=== PATIENT | female | born 1990 | race Caucasian/White ===

== ENCOUNTER → 2018-05-08 09:34 | Outpatient (CLI) | payer SELFPAY ==
[2018-05-08 11:35] LABS: Absolute Lymphocyte Count 1.64 X10^3/ul (0.83-4.51); Absolute Neutrophil Count 4.3 X10^3/uL (2.0-7.7); Basophil# 0.03 X10^3/uL; Basophil% 0.5 % (0-1); Eosinophil# 0.08 X10^3/uL; Eosinophils% 1.2 % (0-5); Hematocrit 40.9 % (37-47); Hemoglobin 13.2 g/dl (12.0-15.0); Lymphocyte # 1.64 X10^3/ul (4.0); Lymphocyte % 25.6 % (19-41); Mean Corp Hgb Conc 32.3 g/gl (32-36); Mean Corpuscular Hgb 26.2 pg (27.0-32.0); Mean Corpuscular Volume 81.2 fL (81-99); Mean Platelet Vol. 10.6 fl (6.2-12.0); Monocyte# 0.41 X10^3/uL; Monocyte% 6.4 % (0-10); Neutrophil # 4.25 X10^3/uL (2.7-7.7); Neutrophil % 66.3 % (47-70); POSITIVE COUNT NO; POSITIVE DIFFERENTIAL NO; POSITIVE MORPHOLOGY NO; Platelet Count 282 K/mm3 (150-450); RBC Distribution Width CV 16.9 % (11.6-14.6); RBC Distribution Width SD 49.4 fl (35.1-43.9); Red Blood Count 5.04 M/mm3 (4.2-5.4); White Blood Count 6.4 K/mm3 (4.4-11.0)
[2018-05-08 11:48] LABS: hCG Titer Quant., Serum < 1 mIU/mL (<9 non-preg)
[2018-05-08 11:54] LABS: Thyroid Stim Hormone (TSH) 1.06 uIU/mL (0.358-3.74)
== END ==
PROVIDERS: PCP Family Medicine; Visit Provider Obstetrics & Gynecology
DX: N93.9 Abnormal uterine and vaginal bleeding, unspecified (principal); F53 Mental and behavioral disorders associated with the puerperium, not elsewhere classified
CPT/HCPCS: 36415; 84443; 84702; 85025

== ENCOUNTER → 2019-08-24 13:39 | Outpatient (CLI) | payer SELFPAY ==
[2019-08-24 08:11] VITALS: BMI 23.5
[2019-08-31 09:43] LABS: HPV APTIMA, High Risk Negative (Negative)
== END ==
PROVIDERS: Family Provider Family Medicine; PCP Family Medicine; Referring Provider Nurse Practitioner Women's Health; Visit Provider Nurse Practitioner Women's Health
DX: N39.0 Urinary tract infection, site not specified (principal); N93.9 Abnormal uterine and vaginal bleeding, unspecified; R10.2 Pelvic and perineal pain; Z12.4 Encounter for screening for malignant neoplasm of cervix
CPT/HCPCS: 87086; 87088; 87624; 88175; G0145

== ENCOUNTER → 2019-08-24 15:16 | Outpatient (CLI) | payer SELFPAY ==
[2019-08-24 08:11] VITALS: BMI 23.5
--- NOTE | 2019-08-24 15:18 | US_ITS ---
STUDY: ULTRASOUND OF THE FEMALE PELVIS - COMPLETE REASON FOR EXAM: Female, 29 years old. ABNORMAL UTERINE BLEEDING LEFT PELVIC PAIN LMP: 08/09/2019 TECHNIQUE: Transabdominal and Transvaginal TECHNICAL QUALITY: Adequate. COMPARISON: None. FINDINGS: The uterus is anteverted and is in a midline position. Uterus appears to be septated. The uterus measures 9.2 x 5.1 x 4.2 cm. There is thickening of the endometrial complex of the cervix with adjacent hypoechogenicity of the subendometrial myometrium. No discrete mass is identified. The endometrium measures 10 mm in thickness, and is hyperechoic. There is no demonstrated endometrial mass. There is no demonstrated myometrial mass. I.U.D. - The patient does not have an I.U.D. The right ovary is visualized. The right ovary measures 4.8 x 2.2 x 2.6 cm. There is no right ovarian cyst or ovarian mass. There is no visualized right adnexal mass or complex lesion. There is normal arterial and normal venous vascularity. The left ovary is visualized. The left ovary measures 3.8 x 3.0 x 2.0 cm. There is no left ovarian cyst or ovarian mass. There is no visualized left adnexal mass or complex lesion. There is normal arterial and normal venous vascularity. There is mild pelvic free fluid. US/Pelvic (Non ) IMPRESSION: 1. Endometrial thickening and subendometrial heterogeneity involving the cervix. Could represent adenomyosis although nonspecific, neoplasm not excluded. Recommend correlation with pelvic/clinical exam and MRI, if clinically appropriate. 2. Mild pelvic free fluid. Electronically Signed: Porter Moctezuma MD (Brooks) at 17:17 EST , Service support ,
--- NOTE | 2019-08-24 15:18 | US_ITS ---
STUDY: ULTRASOUND OF THE FEMALE PELVIS - COMPLETE REASON FOR EXAM: Female, 29 years old. ABNORMAL UTERINE BLEEDING LEFT PELVIC PAIN LMP: 08/09/2019 TECHNIQUE: Transabdominal and Transvaginal TECHNICAL QUALITY: Adequate. COMPARISON: None. FINDINGS: The uterus is anteverted and is in a midline position. Uterus appears to be septated. The uterus measures 9.2 x 5.1 x 4.2 cm. There is thickening of the endometrial complex of the cervix with adjacent hypoechogenicity of the subendometrial myometrium. No discrete mass is identified. The endometrium measures 10 mm in thickness, and is hyperechoic. There is no demonstrated endometrial mass. There is no demonstrated myometrial mass. I.U.D. - The patient does not have an I.U.D. The right ovary is visualized. The right ovary measures 4.8 x 2.2 x 2.6 cm. There is no right ovarian cyst or ovarian mass. There is no visualized right adnexal mass or complex lesion. There is normal arterial and normal venous vascularity. The left ovary is visualized. The left ovary measures 3.8 x 3.0 x 2.0 cm. There is no left ovarian cyst or ovarian mass. There is no visualized left adnexal mass or complex lesion. There is normal arterial and normal venous vascularity. There is mild pelvic free fluid. US/Transvaginal Non- IMPRESSION: 1. Endometrial thickening and subendometrial heterogeneity involving the cervix. Could represent adenomyosis although nonspecific, neoplasm not excluded. Recommend correlation with pelvic/clinical exam and MRI, if clinically appropriate. 2. Mild pelvic free fluid. Electronically Signed: Porter Moctezuma MD (Brooks) at 17:17 EST , Service support ,
== END ==
PROVIDERS: Family Provider Family Medicine; PCP Family Medicine; Referring Provider Nurse Practitioner Women's Health; Visit Provider Nurse Practitioner Women's Health
DX: N93.9 Abnormal uterine and vaginal bleeding, unspecified (principal); R10.2 Pelvic and perineal pain
CPT/HCPCS: 76830; 76856; 93976

== ENCOUNTER → 2019-08-27 17:41 | Outpatient (CLI) | payer SELFPAY ==
[2019-08-24 08:11] VITALS: BMI 23.5
--- NOTE | 2019-08-27 17:50 | MRI_ITS ---
STUDY: MR PELVIS WITH T WITHOUT CONTRAST REASON FOR EXAM: Female, 29 years old. Abnormal uterine bleeding, pelvic pain, back pain. F/U to abnormal sono TECHNIQUE: Standardized fat and water weighted pulse sequences were obtained in all 3 orthogonal planes, pre-and post contrast administration. Pt received 13ml Dotarem via IV was administered for the contrast portion of the examination. COMPARISON: None. FINDINGS: Urinary bladder is not well-distended. The visualized hollow viscus structures are unremarkable. The uterus is anteverted measuring 4.4 x 6.2 x 8.8 cm. There is fluid in the upper/fundal uterine canal although no distinct mass is identified. There is diffuse thickening and indistinctness of the junctional zone with small focal areas of increased T2 signal intensity of the uterine fundal and body myometrium. Subendometrial localized hyper T2 signal intensity of the lower uterine segment evident on image 14 of series 3 measuring 2-3 mm. No distinct, focal mass. No abnormal contrast enhancement. There are follicles of the bilateral ovaries without dominant follicle or cyst. There is no pelvic fluid. There is no pelvic mass lesion or lymphadenopathy. Normal visualized pelvic arteries. No demonstrated bone marrow edema. Normal abdominal wall. MRI/Pelvis W/WO Contrast IMPRESSION: 1. Diffusely heterogeneous uterine myometrium with thickened junctional zone and small focal hyper T2 signal intensity suggestive of adenomyosis, diffuse type. 2. No uterine mass or pelvic adenopathy. Electronically Signed: Porter Moctezuma MD (Brooks) at 8:27 EST , Service support ,
== END ==
PROVIDERS: Family Provider Family Medicine; PCP Family Medicine; Referring Provider Nurse Practitioner Women's Health; Visit Provider Nurse Practitioner Women's Health
DX: N93.9 Abnormal uterine and vaginal bleeding, unspecified (principal); N88.8 Other specified noninflammatory disorders of cervix uteri; Q51.20 Other doubling of uterus, unspecified; R93.89 Abnormal findings on diagnostic imaging of other specified body structures
CPT/HCPCS: 72197; A9575

== ENCOUNTER → 2020-06-12 18:22 | Outpatient (CLI) | payer SELFPAY ==
[2019-08-24 08:11] VITALS: BMI 23.5
--- NOTE | 2020-06-12 18:24 | US_ITS ---
STUDY: SECOND AND THIRD TRIMESTER OBSTETRICAL ULTRASOUND - LIMITED REASON FOR EXAM: Female, 30 years old VIABILITY..... BLOODY DISCHARGE YESTERDAY LMP: 03/12/2020 PRIOR ULTRASOUND: None. TECHNIQUE: Transabdominal and Transvaginal TECHNICAL QUALITY: Adequate. FINDINGS: There is a single intrauterine fetus. The fetus is in a breech presentation. There is demonstrated cardiac activity with a heart rate of 166 bpm. There is a normal amniotic fluid volume. The largest amniotic fluid pocket measures 3.5 cm x 3.7 cm. The amniotic fluid index (BERNARD) is within normal limits. The placenta is posterior and low lying but not previa in location. The tip of the placenta is estimated 8 mm away from the cervical os. There are Grade 0 placental changes. The cervix measures 3.1 cm in length. BIOMETRY: BPD: 2.53 cm: 14 weeks, 2 days HC: 9.76 cm: 14 weeks, 3 days AC: 7.37 cm: 13 weeks, 6 days FL: 1.01 cm: 13 weeks, 0 days Age by LMP: 13 weeks, 1 days. KHALIDA by LMP: 12/17/2020. age by current US: 13 weeks, 6 days. KHALIDA by current US: 12/12/2020. Estimated weight: 70 grams, +/- 12 grams, 15 percentile. US/Init OB < 14Wks US IMPRESSION: Single live intrauterine gestation with a mean gestational age of 13 weeks and 6 days. Low-lying posterior placenta. The tip of the placenta is 8 mm away from the cervical os. Electronically Signed: Dhruv Mohr, at 9:38 EDT , Service support ,
== END ==
PROVIDERS: PCP Family Medicine; Visit Provider Nurse Practitioner Women's Health
DX: O20.0 Threatened abortion (principal)
CPT/HCPCS: 76801

== ENCOUNTER → 2020-08-08 15:50 | Outpatient (CLI) | payer SELFPAY ==
--- NOTE | 2020-08-08 15:53 | US_ITS ---
STUDY: SECOND AND THIRD TRIMESTER OBSTETRICAL ULTRASOUND REASON FOR EXAM: Female, 30 years old evaluation of anatomy LMP: 03/12/2020 TECHNIQUE: Transabdominal real time exam with medina scale image documentation. TECHNICAL QUALITY: Adequate. PRIOR ULTRASOUND: 06/12/2020 FINDINGS: There is a single intrauterine fetus. The fetus is in variable presentation. There is demonstrated cardiac activity with a heart rate of 149 bpm. There is a normal amniotic fluid volume. The largest amniotic fluid pocket measures 5.8 cm.The placenta is fundal, posterior and not low lying. There are Grade 0 placental changes. The cervix measures 3.7 cm in length. The bilateral adnexal regions are normal. BIOMETRY: BPD: 5.62 cm: 23 weeks, 1 days HC: 19.9 cm: 22 weeks, 1 days AC: 17.8 cm: 22 weeks, 4 days FL: 3.7 cm: 21 weeks, 5 days CI: 82 FL/BPD: 66 FL/AC: 21 HC/AC: 1.12 age by current US: 22 weeks, 0 days. KHALIDA by current US: 12/12/2020. Estimated weight: 504 grams, +/- 76 grams, 93 %. age by prior US: 22 weeks, 0 days. KHALIDA by prior US: 12/12/2020. Age by LMP: 21 weeks, 2 days. KHALIDA by LMP: 12/17/2020. ANATOMY: Gender: Male Cranium: Normal lateral ventricles. Normal choroid plexus. Normal cerebellum. Normal cisterna magna. Normal face, nose and lips. Chest: Normal 4-chamber heart. Abdomen/Pelvis: Normal diaphragm. Normal stomach. Normal abdominal wall. Normal cord insertion. Normal 3 vessel cord. Normal kidneys. Normal bladder. Spine: Normal cervical spine. Normal thoracic spine. Normal lumbar spine. Normal sacrum. Extremities: Normal bilateral upper extremities. Normal bilateral lower extremities. US/OB Anatomy Scan IMPRESSION: Single living intrauterine fetus of 22 weeks and 0 days with an KHALIDA of 12/12/2020. Normal amniotic fluid volume. Grade 0, fundal, posterior and not low lying placenta. Cervical length of 3.7 cm. Estimated weight of 405 g +/- 76 g, 93rd percentile. Normal anatomic survey. Electronically Signed: Mei Holt MD at 19:00 EST , Service support ,
== END ==
PROVIDERS: PCP Family Medicine; Referring Provider Obstetrics & Gynecology; Visit Provider Obstetrics & Gynecology
DX: Z34.90 Encounter for supervision of normal pregnancy, unspecified, unspecified trimester (principal)
CPT/HCPCS: 76805

== ENCOUNTER → 2020-11-24 16:51 | Outpatient (CLI) | payer SELFPAY | PROVIDERS: PCP Family Medicine; Referring Provider Obstetrics & Gynecology; Visit Provider Obstetrics & Gynecology | DX: Z34.90 Encounter for supervision of normal pregnancy, unspecified, unspecified trimester (principal) | CPT/HCPCS: 87081 ==

== ENCOUNTER → 2022-04-16 | Outpatient (CLI) | payer SELFPAY ==
[2022-04-16 11:10] LABS: T4 Free Direct 0.97 ng/dL (0.76-1.46); Thyroid Stim Hormone (TSH) 2.12 uIU/mL (0.358-3.74)
[2022-04-19 15:47] LABS: HPV APTIMA, High Risk Negative (Negative)
== END | disposition home or self-care (01) ==
PROVIDERS: PCP Family Medicine; Referring Provider Obstetrics & Gynecology; Visit Provider Obstetrics & Gynecology
DX: Z12.4 Encounter for screening for malignant neoplasm of cervix (principal); N93.9 Abnormal uterine and vaginal bleeding, unspecified
CPT/HCPCS: 36415; 84439; 84443; 87624; 88175; G0145

== ENCOUNTER → 2022-08-13 | Outpatient (CLI) | payer SELFPAY ==
--- NOTE | 2022-08-13 10:02 | MRI_ITS ---
EXAM: MR PELVIS WITHOUT AND WITH INTRAVENOUS CONTRAST CLINICAL INDICATION: Abnormal uterine bleeding TECHNIQUE: Multiplanar and multisequence MR images of the pelvis without and with intravenous contrast. This report was created using [employer] report generation technology. CONTRAST: IV 12ml Clariscan COMPARISON: MR Pelvis dated 08/27/2019 FINDINGS: INTRAPERITONEAL SPACE: No adnexal mass or free pelvic fluid. BLADDER: Normal. REPRODUCTIVE: Stable uterine enlargement measuring 9.7 cm in length. Endometrial thickness of 8 mm. Junctional zone measures 7 mm. No hypertrophic endometrial glandular reaction is identified and myometrium is fairly homogeneous in signal intensity. Previously noted small glandular cyst along the endocervical canal are no longer apparent on the current exam. The multicystic appearance of both ovaries again seen. BONES/JOINTS: Normal. No suspicious lytic or blastic abnormality. SOFT TISSUES: Normal. No pelvic wall hernia. LYMPH NODES: Normal. No enlarged lymph nodes. MRI/Pelvis W/WO Contrast IMPRESSION: Stable mild uterine enlargement. No evidence of uterine mass or adenomyosis. Multicystic ovaries. Electronically Signed: Junaid Lozano MD at 15:15 EST ,
[2022-08-13 10:48] LABS: Absolute Neutrophil Count 3.3 X10^3/uL (2.0-7.7); Basophil# 0.05 X10^3/uL; Basophil% 0.9 % (0-1); Eosinophil# 0.07 X10^3/uL; Eosinophils% 1.3 % (0-5); Hematocrit 41.1 % (37-47); Hemoglobin 12.8 g/dL (12.0-15.0); Lymphocyte % 30.9 % (19-41); Mean Corp Hgb Conc 31.1 g/dL (32-36); Mean Corpuscular Hgb 26.3 pg (27.0-32.0); Mean Corpuscular Volume 84.4 fL (81-99); Mean Platelet Vol. 10.3 fl (6.2-12.0); Monocyte# 0.36 X10^3/uL; Monocyte% 6.5 % (0-10); NRBC Flagged by Analyzer 0 % (0-5); Neutrophil # 3.28 X10^3/uL (2.7-7.7); Neutrophil % 59.7 % (47-70); Platelet Count 393 K/mm3 (150-450); RBC Distribution Width CV 14.2 % (11.6-14.6); RBC Distribution Width SD 43.3 fl (35.1-43.9); Red Blood Count 4.87 M/mm3 (4.2-5.4); White Blood Count 5.5 K/mm3 (4.4-11.0)
== END | disposition home or self-care (01) ==
PROVIDERS: Referring Provider Obstetrics & Gynecology; Visit Provider Obstetrics & Gynecology
DX: N93.9 Abnormal uterine and vaginal bleeding, unspecified (principal); N85.2 Hypertrophy of uterus
CPT/HCPCS: 36415; 72197; 85025; 87070; 87205; A9575

== ENCOUNTER → 2024-05-07 | Outpatient (CLI) | payer SELFPAY ==
--- NOTE | 2024-05-07 09:24 | BI_ITS ---
MAMMOGRAPHY - BILATERAL DIAGNOSTIC REASON FOR EXAM: Female, 34 years old. Recent sonogram demonstrating a right breast calcification. PERTINENT HISTORY: Mother with breast cancer. Grandmother with breast cancer. TECHNIQUE: Digital bilateral breast mirta (3D mammographic acquisition) in the CC and MLO projections. 2-D mediolateral oblique (MLO) and craniocaudad (CC) views of both breasts were obtained. CAD: Full Field Digital Mammography with Computer Added Detection was performed. COMPARISON: None. Baseline examination. FINDINGS: Breast Composition: The breasts are extremely dense, which lowers the sensitivity of mammography. There are no dominant masses or suspicious calcifications. There is a 2 mm densely calcified nodule in the inferior medial anterior aspect of the right breast corresponding to the sonographic findings. This is in keeping with a calcified fibroadenoma. No other significant abnormalities are identified. BI/DIAG MAMM W/CAD, BILAT IMPRESSION: Negative diagnostic mammogram. Yearly followup mammogram recommended. (A) ASSESSMENT CATEGORY: BIRADS Category 2: Benign. A letter regarding these results will be sent to the patient by the facility within 30 days. Approximately 10% of breast cancers are not detected by mammography. A normal mammogram should not delay biopsy of a clinically suspicious abnormality. Electronically Signed: Dhruv Mohr MD at 10:45 EDT ,
== END | disposition home or self-care (01) ==
PROVIDERS: Referring Provider Family Medicine; Visit Provider Family Medicine
DX: R92.1 Mammographic calcification found on diagnostic imaging of breast (principal)
CPT/HCPCS: 77062; 77066; G0279

== ENCOUNTER → 2025-03-22 | Outpatient (CLI) | payer SELFPAY ==
--- NOTE | 2025-03-22 | CER_PTH ---
PATIENT: CHEO BUTTS LOC: [facility]#:[id number] AGE/SX: 35/F ROOM: RE03/22/[address]: Dr. Domenica Goncalves MD : 1990 BED: DIS: 03/22/2025 SPEC #: [id number] RECD: 03/22/25 16:25 STATUS: LEYDI RERuiz #: [id number] GUIDO: 03/22/25 00:[address]: Domenica Goncalves DEPT: SURGICAL PATHOLOGY RECD BY: Kimani Ford ENTERED: 03/23/25 09:21 SP TYPE: CERV OTHR DR: Dr. José Chin, DO Tissues: A - Uterine cervix, NOS Procedures: Surgery Specimen Level IV HEADER OPERATION: Cervical polyp removal PRE-OP DIAGNOSIS: Cervical polyp TISSUE SUBMITTED: A- Cervical polyp MICROSCOPIC DIAGNOSIS A. Cervix, polyp, excision: - Benign endocervical polyp.: MICROSCOPIC DESCRIPTION Slides are reviewed. GROSS DESCRIPTION A. Received in formalin labeled with the patient's name and date of . Designated as cerv polyp is a 2.0 x 1.0 x 0.5 cm giron-pink granular, polypoid portion of tissue with a narrow, apparent resection margin that is inked black. The specimen is trisected and entirely submitted in 1 cassette. [place] 03/23/2025 CPT:96483
--- NOTE | 2025-03-22 16:08 | US_ITS ---
PROCEDURE: PELVIC W/ TRANSVAGINAL REASON FOR EXAM: MENSES WITH CLOTS TECHNIQUE: PELVIC W/ TRANSVAGINAL COMPARISON: None FINDINGS: LMP: March 04, 2025. Measurements: Uterus: 10.5 cm x 6.4 cm x 4.5 cm with a volume of 157.51 mL Endometrial Thickness: 7.9 mm Right Ovary: 3.3 cm x 1.7 cm x 2.6 cm with a volume of 7.71 mL. Left Ovary: 3.4 cm x 3.1 cm x 2.9 cm with a volume of 50 18.51 mL. TRANSABDOMINAL: Uterus: Normal size, myometrial echotexture, and contour. Endometrium: Endometrium measures 7.9 mm. There is a 1.4 cm x 1 cm x 0.8 cm hypoechoic polypoid abnormality in the cervical canal. This may represent a polyp but flow insert this hypoechoic density. Right ovary: Normal size and echotexture. Left ovary: Normal size and echotexture. Other: No large pelvic mass identified. Transvaginal sonography was performed to better visualize the endometrium. TRANSVAGINAL: Uterus: Anteverted. Endometrium: Findings suggestive of a polyp cervical canal. Right ovary: Normal size and echotexture. Left ovary: Normal size and echotexture. Other adnexal findings: None. Cul-de-sac: Minimal free fluid in the pelvis within normal limits. Tenderness: No tenderness US/Pelvic w/ Transvaginal IMPRESSION: Findings suggestive of a 1.4 cm x 1 cm x 0.8 cm polyp in the cervical canal wit h blood flow. Reading Location: [id number]
== END | disposition home or self-care (01) ==
LOC: US 16:07
PROVIDERS: PCP Family Medicine; Referring Provider Obstetrics & Gynecology; Visit Provider Obstetrics & Gynecology
DX: N84.1 Polyp of cervix uteri (principal)
CPT/HCPCS: 76830; 76856; 88305

== ENCOUNTER → 2025-04-14 | Outpatient (CLI) | payer SELFPAY ==
--- NOTE | 2025-04-14 18:03 | US_ITS ---
PROCEDURE: PELVIC W/ TRANSVAGINAL REASON FOR EXAM: CERVICAL POLYP TECHNIQUE: PELVIC W/ TRANSVAGINAL COMPARISON: Prior study dated March 22, 2025. FINDINGS: LMP: April 01, 2025 Measurements: Uterus: 9.7 cm x 6.8 cm x 4.7 cm with a volume of 158.91 mL Endometrial Thickness: 13.7 mm. It is hyperechoic. Fluid is seen within the endometrium. Right Ovary: 4 cm x 3.4 cm x 2.3 cm with a volume of 16.4 mL. Left Ovary: 3 cm x 2.8 cm x 2.3 cm with a volume of 9.93 mL. TRANSABDOMINAL: Uterus: Normal size, myometrial echotexture, and contour. There are several hypoechoic densities with vascularity in the cervix. These may represent polyps. The largest measures 9 mm x 5 mm x 4 mm. Endometrium: Endometrium is thickened measuring 13.7 mm. Endometrial fluid is seen. Right ovary: Normal size and echotexture. Left ovary: Normal size and echotexture. Other: No large pelvic mass identified. Transvaginal sonography was performed to better visualize the endometrium. TRANSVAGINAL: Uterus: Anteverted. Findings suggestive of polyps within the cervix as described. Endometrium: Homogeneously thickened. Right ovary: Normal size and echotexture. Left ovary: Normal size and echotexture. Other adnexal findings: None. Cul-de-sac: No free intraperitoneal fluid identified. Tenderness: No tenderness US/Pelvic w/ Transvaginal IMPRESSION: Endometrial thickening. Findings suggestive of polyps within the cervix. Reading Location: [id number]
== END | disposition home or self-care (01) ==
LOC: US 17:53
PROVIDERS: PCP Family Medicine; Referring Provider Obstetrics & Gynecology; Visit Provider Obstetrics & Gynecology
DX: N84.1 Polyp of cervix uteri (principal)
CPT/HCPCS: 76830; 76856

== ENCOUNTER 2025-05-31 11:10 | Day surgery (SDC) | payer SELFPAY ==
--- NOTE | 2025-05-30 16:32 | HP.PCM_ITS ---
History and Physical Date of Admission: 05/31/25 ital Signs 03/22/2514:43 04/22/2508:14 04/22/2508:15 Height 5 ft 6 in 5 ft 6 in 5 ft 6 in Weight: 148 lb BMI 23.8 BP 116/76 Intake Visit Reasons: Discuss D&C for polyp Telephone Diaphragm Assembler Required: No Is patient in pain?: No Allergies No Known Allergies Allergy (Verified 04/22/25 08:13) Medications ?Medication ?Instructions ?Recorded ?Confirmed ?Type vitamin B complex (Complex B-100 1 tab PO QDAY 12/07/24 04/22/25 History tablet,extended release) chaste tree PO .once a day 03/22/25 04/22/25 History docosahexaenoic acid 200 mg mg PO 03/22/25 04/22/25 History capsule ( DHA) iron PO .once a day 03/22/25 04/22/25 History resveratrol PO .once a day 03/22/25 04/22/25 History vitamin d3+vitamin k+omega 3+mct PO .once a day 03/22/25 04/22/25 History Is last menstrual period known: Yes Last Menstrual Period: 04/01/25 Post menopausal: No Patient : No PFSH Medical History Anemia Small intestinal bacterial overgrowth H/O abnormal cervical Papanicolaou smear History of anxiety Surgical History [place] teeth extracted H/O colposcopy with cervical biopsy Family History Mother Breast cancer Grandmother Breast cancer Social History number of children: 2 Smoking Status: Never smoker alcohol intake: never substance use type: does not use caffeine: Yes what type of physical activity do you participate in: aerobics and weight training frequency: daily seatbelt use: always do you feel safe at home: Yes additional social history: [employer] Discuss D&C for polyp Details: CHEO BUTTS is a 35 year old who presents for follow up of abnormal ultrasound. she had a cerivlca polyp removed a month ago. she has had a menses since andbled for 5 days and then had a typical bleeding pattern. she is anxious about having surgery she has never had anything before. she denies any signifcant bleeding after the previous cervical polyp removal but she did pass some tissue after. She has had two ultrasounds that had supicious areas of polyps present. Female Reproductive History Last Menstrual Period: 04/01/25 History 2 Elective abortions Hx Para 2 Spontaneous abortions Hx # Term Pregnancies Ectopic pregnancies Hx # Pregnancies Multiple births # of living children 2 Past Pregnancies Del. Date Name GA/Weeks Outcome Route Bth Weight Gen Labor Lgth Anesthesia Del Locatn Provider FOB Unknown 2017 Tania 39 live - full term 7lbs 6oz Female 1 0 hours none Homebirth, [facility] Matias 12/08/20 Nicholas 39 live - full term 8lbs 4oz Male none Home [facility] Delivery Date: Last Updated by: Renate Moctezuma no complications Delivery Date: 12/08/20 Last Updated by: Nichelle Juan Home co care ROS Const Constitutional: Denies fatigue, fever(s), headache(s), increased appetite, poor appetite, weight gain or weight loss GI GI: Reports as per HPI; Denies abdominal pain, constipation, nausea or vomiting : Reports as per HPI; Denies difficulty voiding, dysuria, hematuria, pelvic pain, urinary frequency, urinary incontinence, urinary hesitancy, urinary urgency, vaginal discharge, vaginal dryness, vaginal odor, vaginal pruritus or other Exam Const General: cooperative, healthy appearing, comfortable, no acute distress and well developed Orientation: alert HENNY Head: normal to inspection and normocephalic Ears: hearing grossly normal bilaterally and external ears normal Nose: external nose normal and nares normal Face and sinus: normal facial exam Neck Neck: normal visual inspection, no lymphadenopathy and trachea midline Thyroid: thyroid normal Resp Effort & Inspection: normal respiratory effort Musc Other: gross motor intact no deficits, full bilateral strength Skin General: no rashes or lesions noted Neuro Motor: muscle tone normal throughout Coding Level of Care Code No Charge Diagnoses Cervical polyp N84.1 Assessment and Plan Assessment and Plan (1) Cervical polyp: Status: Acute Comment: recommend d and c hysteroscopy symphion Plan After discussing the patient's diagnosis and treatment plan options, patient wishes to proceed with surgical management. I have discussed with the patient the risks, benefits, and alternatives of the procedure which include but are not limited to risks of anesthesia, bleeding, infection, possible damage to bowel, bladder, or surrounding vasculature which could lead to additional surgery to evaluate any complications. Patient agrees to procedure and wishes to proceed. ACOG/uptodate references given for additional information regarding procedure.
[2025-05-31] VITALS (9 sets, daily range): BP systolic 102–120; BP diastolic 58–71; PULSE 66–99; RESP 16–20; TEMP 36.2–36.6; O2SAT 94–100; BMI 23.7
--- NOTE | 2025-05-31 11:28 | PRE.ANES_ITS ---
ASA Classification* ASA Classification ASA Classification: 2 Assessment & Plan Anesthesia* Anesthesia Assessment Anesthesia Assessment: Discussed sedation and/or anesthesia options, risks, benefits, and alternatives with patient/parents/legal guardian/POA. Questions invited. The patient/parents/legal guardian/POA seems to understand and agrees to proceed with anesthesia plan. Reviewed the physical assessment, medical history, allergy history and patient home medications list prior to surgery/procedure/anesthetic and documented any changes. Performed airway and anesthesia risk assessments. Anesthesia Type Anesthesia Type: MAC Anesthesia Focused Assessment* Airway Assessment Mouth opens: >3 cm Mallampati Score: II Labs Anesthesia Preop lab: CBC WBC, (4.4-11.0) 5.5 K/mm3 08/13/22, 10:04 RBC, (4.2-5.4) 4.87 M/mm3 08/13/22, 10:04 Hgb, (12.0-15.0) 12.8 g/dL 08/13/22, 10:04 Hct, (37-47) 41.1 % 08/13/22, 10:04 Plt Count, (150-450) 393 K/mm3 08/13/22, 10:04 CHEMISTRY TSH, (0.358-3.74) 2.12 uIU/mL 04/16/22, 10:15 COAG HCG, Quant, (<9 non-preg) < 1 mIU/mL 05/08/18, 09:3 6 Urine Test Pending Today, 11:25 [facility]st Clinic Negative 08/24/19, 08:39 Pre-Assessment Diagnosis/Proposed Procedure Planned Operative Procedure(s): HYSTEROSCOPY D&C Anesthesia History 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 When Was Last Pacemaker Check QUESTION #4 FULL TEXT: You/Your Family Experience fever (hyperthermia) with Anesthesia Last Oral Intake Last Oral intake: Last Oral Intake NPO since Meds taken in AM with sips of water? Meds patient instructed to take am of surgery PONV PONV - gasoline truck operator: PONV - gasoline truck operator Female Yes 05/23/25 11:10 HX of Motion Sickness No 05/23/25 11:10 HX of N/V After Surgery No 05/23/25 11:10 Non-Smoker Yes 05/23/25 11:10 Duration of Surgery greater No 05/23/25 11:10 than 60 minutes Number of Risk Factors 2 05/23/25 11:10 PONV Score Moderate Risk 05/23/25 11:10 Height & Weight Height & Weight: Anesthesia: Height & Weight Height 5 ft 6 in 04/22/25 08:15 Respiratory Assessment Respiratory Assessment - gasoline truck operator: Respiratory Tract Infection Hx - gasoline truck operator Hx Respiratory Tract Infection No 05/23/25 11:10 STOP Sleep Apnea STOP Sleep Apnea - gasoline truck operator: STOP Sleep Apnea - gasoline truck operator Hx Hypertension No 05/23/25 11:10 Hx Sleep Apnea No 05/23/25 11:10 CPAP BIPAP Do you snore loudly (louder No 05/23/25 11:10 than talking or can be heard Do you often feel tired/ No 05/23/25 11:10 fatigued/ sleepy during daytime? Has anyone observed you stop No 05/23/25 11:10 breathing during sleep? STOP Results Negative 05/23/25 11:10 QUESTION #5 FULL TEXT : Do you snore loudly (louder than talking or can be heard through closed doors)? 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 Specify any problems Hx of Preganancy in last 3 No 05/23/25 11:10 Months Nurse Filling Out Transfusion DSCHRIBER 05/23/25 11:10 & Questions: Date: 05/23/25 05/23/25 11:10 Time: 11:12 05/23/25 11:10 Patient unable to answer at this time (ie. confused, unrespo /Reproduction History /Reproductive History - gasoline truck operator: /Reproductive Hx- gasoline truck operator Hx Now No 05/23/25 11:10 Gestational Age (in weeks): EDC: Hx Hx Para Hx Section SAB No 05/23/25 11:10 Active Medications Active Medications: Current Medications Generic Name Dose Route Start Last Admin Trade Name Freq PRN Reason Stop Dose Admin Lactated Ringer's 1,000 mls @ 15 mls/hr 05/31/25 11:30 IV .Q48H STEVEN PFSH Medical History Depression Anxiety Easy bruising Injury of head and neck Vasovagal episode Injury of head and neck Blackout Non-smoker Cardiology follow-up encounter Raynaud disease Anemia Small intestinal bacterial overgrowth H/O abnormal cervical Papanicolaou smear Home Medications ?Medication ?Instructions ?Recorded ?Last Taken ?Type vitamin B complex (Complex B-100 1 tab PO QDAY 5 Unknown History tablet,extended release) chaste tree 1 cap PO DAILY 03/22/25 Unkn own History docosahexaenoic acid 200 mg 400 mg PO DAILY 03/22/25 U nknown History capsule ( DHA) iron 30 mg PO DAILY 03/22/25 Unkn own History resveratrol 1 cap PO DAILY 03/22/25 Unkn own History Lactobacillus acidophilus 10 100 mmu cells PO DAILY Unknown History billion cell capsule (NewFlora) cyanocobalamin-liver extract tablet 1 tab PO TID 05/23 Unknown History omega 3-fdy-yff-fish oil 1,200 mg 1 cap PO DAILY 05/23 Unknown History (144 mg-216 mg) capsule (Fish Oil) vitamin D3 25 mcg (1,000 unit)-vit 1 tab PO DAILY 04/26 05/19 Unknown History K2 90 mcg disintegrating tablet Allergy/AdvReac Type Severity Reaction Status Date / Time No Known Allergies Allergy Verified 05/23/25 11:06 Family History Mother Breast cancer Grandmother Breast cancer Surgical History [place] teeth extracted H/O colposcopy with cervical biopsy Social History number of children: 2 Smoking Status: Never smoker alcohol intake: never substance use type: does not use caffeine: Yes what type of physical activity do you participate in: aerobics and weight t raining frequency: daily seatbelt use: always do you feel safe at home: Yes additional social history: Rufino Review of Systems (Anesthesia) ROS Narrative System reviewed and no additional complaints, except as documented.
[2025-05-31 11:36] LABS: Internal QC Validated? YES +Cl - CLEAR BKGD; Pregnancy, Urine Negative Negative; Record Kit Lot#,Urine Preg 980607
[2025-05-31] MEDS: Lactated Ringers 1,000 ML 15 ML IV (12:00)
--- NOTE | 2025-05-31 12:25 | EMB_PTH ---
PATIENT: CHEO BUTTS LOC: [facility] [place] U#:[id number] AGE/SX: 35/F ROOM: RE05/31/[address]: Dr. Domenica Goncalves MD : 1990 BED: DIS: 05/31/2025 SPEC #: [id number] RECD: 05/31/25 14:26 STATUS: LEYDI RERuiz #: [id number] GUIDO: 05/31/25 12:[address]: Domenica Goncalves DEPT: SURGICAL PATHOLOGY RECD BY: Kimani Ford ENTERED: 05/31/25 14:58 SP TYPE: ENDOM BX/C MADHAVI DR: Dr. José Chin, DO Tissues: A - Endometrium, NOS Procedures: Surgery Specimen Level IV HEADER OPERATION: Hysteroscopy, D&C PRE-OP DIAGNOSIS: Cervical polyp TISSUE SUBMITTED: A- Endometrial curettings and polyp MICROSCOPIC DIAGNOSIS A. Endometrium, curettage: * Proliferative endometrium. * Scant unremarkable superficial myometrium. * Few fragments of benign endocervical mucosa. MICROSCOPIC DESCRIPTION Slides are reviewed. GROSS DESCRIPTION A. Received in formalin labeled with the patient's name and date of . Designated as endometrial curettings and polyp is a 4.4 x 2.7 x 0.5 cm aggregate of giron-pink to red tissue fragments, clotted blood and mucoid material. Entirely submitted in 3 cassettes. NM 05/31/2025 CPT:15309
[2025-05-31] MEDS: Midazolam 2 MG/2 ML Syringe IV (13:20)
[2025-05-31] MEDS: Lidocaine 1% (5 ml sdv) 5 ML Vial IV (13:25)
[2025-05-31] MEDS: Lidocaine 1% (20 ml mdv) 20 ML Vial (13:41)
[2025-05-31] MEDS: fentaNYL 100 MCG/2 ML Ampul IV (13:47)
--- NOTE | 2025-05-31 13:51 | PCM.OPRPT ---
Multi Select Codes Urinary/Genital Urinary/Genital CPT Codes: 25518 Hysteroscopy, Polypectomy, Symphion Operative Report (Standard) Operative Information Date of Procedure: 05/31/25 Pre-Operative Diagnosis: see problem list details cervical polyp Post-Operative Diagnosis: same Surgery/Procedure Performed: dilation and curettage hysteroscopy symphion polypectomy glass tube bender: No Type of Anesthesia: IV Sedation RN Documented Start/Stop Times: Operation Date: 05/31/25 12:25 Case Time Into Pre-Op 05/31/25 11:17 Anesthesia Start 05/31/25 13:20 Into Room 05/31/25 13:20 Procedure Start 05/31/25 13:39 Procedure End 05/31/25 13:48 Procedure Start Time: 13:39 Procedure Stop Time: 13:48 Select all DRAINS/GRAFTS/IMPLANTS that apply: None Estimated Blood Loss: 25 Specimen collected: Yes Description of specimen(s) removed: endometrial curretings and polyp Description of surgery: Patient was prepped and draped in a normal sterile fashion under MAC anesthesia. A weighted speculum was placed in the vagina and the anterior lip of the cervix was grasped with a single-tooth tenaculum. A paracervical block was placed with 1% lidocaine. Cervix was progressively dilated to allow passage of a 5 mm hysteroscope. The lining was fully visualized and noted to have endocervical polyp . Uterine sounded to 8 cm. Using the symphion device, the polyp was progressively removed without complications. Direct visual curettage was performed using the device , and all specimens were sent to pathology. All instruments were removed from the vagina and excellent hemostasis was noted. Patient was awoken and taken to recovery in stable condition. Surgical Findings: endocervical polyp Complications Complications: No
--- NOTE | 2025-05-31 13:52 | PCM.DC ---
Discharge Instructions DC O2, CPAP, BIPAP needs Home O2 Discharge instructions: No Dressing / Incision Discharge Activity: Return to Normal Activity, May Shower and May Take a Tub Bath (after 1 week) May resume sexual activity in: 1-2 weeks Weight Bearing Status: Weight bearing as tolerated Lifting Restrictions: none Dressing / Incision Call your doctor if you observe: Fever of 101 or Higher, Using more than 1 pad per hour, Shortness of breath and Uncontrolled pain Follow Up Care Please Follow Up With: Domenica Goncalves MD When: Call [phone] to schedule appointment. Test Results: Test results from this visit will be discussed in further detail at your follow-up appointment, if applicable. Discharge Plan Admission Attending Provider: Domenica Goncalves Primary Care Provider: José Chin Instructions Print Language: Spanish Discharge Orders/Prescriptions Prescriptions: No Action Complex B-100 Tablet Extended Release 1 tab PO QDAY chaste tree 1 cap PO DAILY resveratrol 1 cap PO DAILY iron 30 mg 30 mg PO DAILY DHA 200 mg capsule 400 mg PO DAILY vitamin D3-vitamin K2 25 mcg (1,000 unit)-90 mcg tablet,disintegrating 1 tab PO DAILY NewFlora 10 billion cell capsule 100 mmu cells PO DAILY cyanocobalamin-liver extract Tablet 1 tab PO TID omega 8-jfd-fci-fish oil [Fish Oil] 1,200 (144-216) mg capsule 1 cap PO DAILY Referrals / Follow Up: José Chin DO [Primary Care Provider, Medical] Disposition Disposition (needs filled in before D/C Order can be placed): Home, Self Care
--- NOTE | 2025-05-31 14:01 | PCM.POST.ANE ---
Anesthesia: Postop Eval I Current Vital Signs Temperature: 97.7 F Pulse Rate: 79 Blood Pressure: 102/58 Respiratory Rate: 20 Pulse Ox: 94 Oxygen Delivery Method: Room Air Assessment Airway patent: Yes Spontaneous unlabored respirations: Yes Mental status: Awake and Calm nausea: No Vomiting: No Anesthesia Complication: No Fluid Hydration Crystalloid volume administer (ml): 900 Total IV fluid infused: 900 Progress Note Anesthesia document: Postop Eval 1 completed: Yes
--- NOTE | 2025-05-31 14:28 | POSTOPAN2_ITS ---
Anesthesia Postop Eval I Sum Postop Eval Completion status Anesthesia document: Postop Eval 1 completed: Yes Anesthesia Postop Eval I Summary Anesthesia Postop Eval I Summary: Anesthesia Postop Eval I: Assessment Summary Airway patent Yes 05/31/25 14:02 SITE ACQUISITION MANAGER.SHOF Spontaneous unlabored Yes 05/31/25 14:02 SITE ACQUISITION MANAGER.SHOF respirations Mental status Awake,Calm 05/31/25 14:02 SITE ACQUISITION MANAGER.SHOF nausea No 05/31/25 14:02 SITE ACQUISITION MANAGER.SHOF Vomiting No 05/31/25 14:02 SITE ACQUISITION MANAGER.SHOF Anesthesia Postop Eval I: Fluid Summary Crystalloid volume administer 900 05/31/25 14:02 SITE ACQUISITION MANAGER.SHOF (ml) Colloids volume administered ( ml) Blood Product volume administered (ml) Total IV fluid infused 900 05/31/25 14:02 SITE ACQUISITION MANAGER.SHOF Anesthesia Postop Eval I: Summary Notes Anesthesia Complication No 05/31/25 14:02 SITE ACQUISITION MANAGER.SHOF Anesthesia Complication Comment: Post-operative progress note Anesthesia: Postop Eval II Evaluation Mental status: Awake Pain Level: 0 nausea: No Vomiting: No
--- NOTE | 2025-05-31 14:28 | PCM.POSTANE2 ---
Anesthesia Postop Eval I Sum Postop Eval Completion status Anesthesia document: Postop Eval 1 completed: Yes Anesthesia Postop Eval I Summary Anesthesia Postop Eval I Summary: Anesthesia Postop Eval I: Assessment Summary Airway patent Yes 05/31/25 14:02 DYNAMOMETER TESTER ENGINE.SHOF Spontaneous unlabored Yes 05/31/25 14:02 DYNAMOMETER TESTER ENGINE.SHOF respirations Mental status Awake,Calm 05/31/25 14:02 DYNAMOMETER TESTER ENGINE.SHOF nausea No 05/31/25 14:02 DYNAMOMETER TESTER ENGINE.SHOF Vomiting No 05/31/25 14:02 DYNAMOMETER TESTER ENGINE.SHOF Anesthesia Postop Eval I: Fluid Summary Crystalloid volume administer 900 05/31/25 14:02 DYNAMOMETER TESTER ENGINE.SHOF (ml) Colloids volume administered ( ml) Blood Product volume administered (ml) Total IV fluid infused 900 05/31/25 14:02 DYNAMOMETER TESTER ENGINE.SHOF Anesthesia Postop Eval I: Summary Notes Anesthesia Complication No 05/31/25 14:02 DYNAMOMETER TESTER ENGINE.SHOF Anesthesia Complication Comment: Post-operative progress note Anesthesia: Postop Eval II Evaluation Mental status: Awake Pain Level: 0 nausea: No Vomiting: No
== END 2025-05-31 15:03 | disposition home or self-care (01) ==
LOC: SDC 11:13 → AC 11:16
PROVIDERS: PCP Family Medicine; Referring Provider Obstetrics & Gynecology; Visit Provider Obstetrics & Gynecology
PROC: 0UB98ZZ Excision of Uterus, Via Natural or Artificial Opening Endoscopic (ICD-10-PCS; CPT 58558; principal; 2025-05-31 12:10)
DX: N84.1 Polyp of cervix uteri (principal)
CPT/HCPCS: 58558; 00952; 81025; 86850; 86900; 86901; 88305; J2405